=== PATIENT | male | born 1985 | race Caucasian/White ===

== ENCOUNTER 2018-01-06 22:17 | Emergency (ER) | payer SELFPAY ==
[2018-01-06] MEDS ORDERED: MORPHINE SULFATE 4MG/ML PREFILLED SYRINGE IVP ONE (22:26)
[2018-01-06] MEDS ORDERED: ONDANSETRON HCL IV 4 MG/2 ML VIAL IVP ONE (22:26)
--- NOTE | 2018-01-06 22:30 | Emergency Department Record ---
History of Present Illness - General Chief complaint: Lower Extremity Pain Stated complaint: INJURY TO LEFT LEG AND ANKLE Time Seen by Provider: 01/06/18 22:25 Source: Patient Mode of Arrival: Wheelchair Limitations: No limitations - History of Present Illness Initial comments: 32 yo male presents to ED for evaluation of left ankle pain following injury while out at the [employer] (fall). Patient denies other injury, but reports that he was unable to place weight on his left ankle following the injury. Patient denies health problems at his baseline. MD Complaint: Extremity swelling, Joint pain Onset/Timin -: Hour(s) Location: Left History of Same: No -: Yes Arthralgia Quality: Aching Consistency: Constant Improves with: Nothing Worsens with: Walking, Weight bearing Associated Symptoms: Denies other symptoms - Related Data Previous Rx's Medication Instructions Recorded Omeprazole 20 mg PO DAILY #30 capsule. 03/12/15 Hydrocodone/Acetaminophen [[place] 1 each PO Q6H PRN #15 tablet 01/06/18 7.5-325 Tablet] Allergies Allergy/AdvReac Type Severity Reaction Status Date / Time No Known Drug Allergies Allergy Unverified 08/13/15 08:53 Review of Systems Constitutional: Denies: Chills, Fever, Malaise, Night sweats Eyes: Denies: Eye discharge, Eye pain ENT: Denies: Congestion, Ear pain, Epistaxis Respiratory: Denies: Cough, Dyspnea Cardiovascular: Denies: Chest pain, Dyspnea on exertion Endocrine: Denies: Fatigue, Heat or cold intolerance Gastrointestinal: Denies: Abdominal pain, Nausea, Vomiting Genitourinary: Denies: Incontinence, Retention Musculoskeletal: Reports: Arthralgia, Joint swelling. Denies: Back pain, Gout Skin: Denies: Bruising, Change in color Neurological: Denies: Confusion, Headache, Seizure Psychiatric: Denies: Anxiety Hematological/Lymphatic: Denies: Anemia, Blood Clots Past Medical History - SOCIAL HISTORY Smoking Status: Former smoker - RESPIRATORY Hx Respiratory Disorders: No - CARDIOVASCULAR Hx Cardio Disorders: No - NEURO Hx Neuro Disorders: No - GI Hx GI Disorders: No - Hx Genitourinary Disorders: No - ENDOCRINE Hx Endocrine Disorders: No - MUSCULOSKELETAL Hx Musculoskeletal Disorders: Yes Hx Fibromyalgia: Yes - PSYCH Hx Psych Problems: No - HEMATOLOGY/ONCOLOGY Hx Hematology/Oncology Disorders: No Family Medical History Hx Heart Disease: Grandparents Physical Exam - General General Appearance: Alert, Oriented x3, Cooperative, Moderate distress Limitations: No limitations - Head Head exam: Atraumatic, Normocephalic, Normal inspection Head exam detail: negative: Abrasion, Contusion, Bishop's sign, General tenderness, Hematoma, Laceration - Eye Eye exam: Normal appearance. negative: Conjunctival injection, Periorbital swelling, Periorbital tenderness, Scleral icterus - ENT Ear exam: negative: Auricular hematoma, Auricular trauma Nasal Exam: negative: Active bleeding, Discharge, Dried blood, Foreign body Mouth exam: negative: Drooling, Laceration, Muffled voice, Tongue elevation Throat exam: negative: Tonsillar erythema, Tonsillomegaly, R peritonsillar mass , L peritonsillar mass - Neck Neck exam: Normal inspection. negative: Meningismus, Tenderness - Respiratory Respiratory exam: Normal lung sounds bilaterally. negative: Rales, Respiratory distress, Rhonchi, Stridor - Cardiovascular Cardiovascular Exam: Regular rate, Normal rhythm, Normal heart sounds Peripheral Pulses: 3+: Dorsalis Pedis (L) - GI/Abdominal GI/Abdominal exam: Soft. negative: Rebound, Rigid, Tenderness - Rectal Rectal exam: Deferred - exam: Deferred - Extremities Extremities exam: Joint swelling, Tenderness, Other (STS and mild deformity to the distal left lower extremity, strong DPP present on examination, no pain over the foot or proximal lower extremity.). negative: Calf tenderness, Pedal edema - Back Back exam: Denies: CVA tenderness (R), CVA tenderness (L) - Neurological Neurological exam: Alert, Oriented X3 - Psychiatric Psychiatric exam: Normal affect, Normal mood - Skin Skin exam: Normal color. negative: Abrasion Type of lesion: negative: abrasion Course Vital Signs 01/06/18 22:25 Temperature 98.3 F Pulse Rate [ 83 Pulse Ox Probe] Respiratory 20 Rate Blood Pressure 120/79 [Left Arm] Pulse Ox 97 - Reevaluation(s) Reevaluation #1: 01/06/18 22:57 Left ankle: Comminuted distal fibula fracture Patient was updated on his radiology result, will place in posterior/sugar tong splint with instructions to follow-up with Dr. Manzo next week in the [facility]. Patient reports that he is feeling much better following analgesia, and appears stable for discharge with outpatient orthopedic follow- up. Disposition Disposition: Discharge Clinical Impression: Fibula fracture Qualifiers: Encounter type: initial encounter Fibula location: shaft Fracture type: closed Fracture morphology: comminuted Fracture alignment: nondisplaced Laterality: left Qualified Code(s): S82.455A - Nondisplaced comminuted fracture of shaft of left fibula, initial encounter for closed fracture Disposition: Home, Self-Care Condition: (2) Stable Instructions: Ankle Fracture (ED) Additional Instructions: Return to ED if your symptoms worsen or if you have any concerns. [place] as directed for pain. Elevate, ice, and non-weight bearing. Follow-up with Dr. Manzo next week in the [facility]. Prescriptions: Hydrocodone/Acetaminophen [[place] 7.5-325 Tablet] 1 each PO Q6H PRN #15 tablet PRN Reason: Pain - Moderate (5-7) Referrals: DAKOTA MANZO [DOCTOR OF OSTEOPATH] - [facility] [Provider Group] Forms: Patient Portal Access Time of Disposition: 23:05 Quality - Quality Measures Quality Measures: N/A - Blood Pressure Screening Does Patient Have Any of the Following: No Blood Pressure Classification: Pre-Hypertensive BP Reading Systolic Measurement: 120 Diastolic Measurement: 79 Screening for High Blood Pressure: < Pre-Hypertensive BP, F/U Documented > [ G8950] Pre-Hypertensive Follow-up Interventions: Referral to alternative/primary care provider.
--- NOTE | 2018-01-08 12:54 | RADIOLOGY REPORT ---
EXAM: ANKLE LEFT 3 VIEWS HISTORY: INJURY. TECHNIQUE: Three views of the left ankle were performed. FINDINGS: There is a minimally displaced spiral fracture deformity of the distal left fibula. There is soft tissue swelling. IMPRESSION: MINIMALLY DISPLACED SPIRAL FRACTURE DEFORMITY OF THE DISTAL LEFT FIBULA. JOB NUMBER: [id number] MTDD
== END 2018-01-06 23:37 | disposition home or self-care (01) ==
LOC: ER 22:17
DX: S82.455A Nondisplaced comminuted fracture of shaft of left fibula, initial encounter for closed fracture (principal); W17.89XA Other fall from one level to another, initial encounter; Y92.830 Public park as the place of occurrence of the external cause; F17.210 Nicotine dependence, cigarettes, uncomplicated
CPT/HCPCS: 29515; 99284 ×2; 96374; 96375; 73610; J2405; J2274

== ENCOUNTER 2018-03-23 03:00 | Emergency (ER) | payer SELFPAY ==
[2018-03-23] MEDS ORDERED: MORPHINE SULFATE 10 MG/ML VIAL IVP ONE ×2 (03:07→05:05)
[2018-03-23] MEDS ORDERED: 0.9 % SODIUM CHLORIDE 1,000 ML BAG IV ONE (03:07)
[2018-03-23] MEDS ORDERED: AMPICILLIN SODIUM/SULBACTAM NA 3 G in 0.9 % SODIUM CHLORIDE 100ML 100 ML IVPB ONE (03:08)
--- NOTE | 2018-03-23 03:14 | Emergency Department Record ---
History of Present Illness - General Chief complaint: Abscess Stated complaint: RECTAL ABSCESS Time Seen by Provider: 03/23/18 03:01 Source: Patient Mode of Arrival: Ambulatory Limitations: No limitations - History of Present Illness Initial comments: 32 yo male presents with increasing pain in the anal region. He states the pain continues to increase daily. No drainage. He has had several abscesses in the past that recur in the similar area. He states this is the 5 times in the last 2 years. No fever. No scrotal pain or symptoms. No nausea or vomiting. No diarrhea. No PCP. MD complaint: Abscess/boil -: Days(s) (3) Hx Tetanus Toxoid Vaccination: Yes Year of Tetanus Vaccination: 2013 Location: Buttocks Severity: Moderate Quality: Aching Consistency: Constant Improves with: Immobilization Worsens with: Palpation Context: None Associated symptoms: Denies other symptoms Treatments Prior to Arrival: None - Related Data Previous Rx's Medication Instructions Recorded Omeprazole 20 mg PO DAILY #30 capsule. 03/12/15 Hydrocodone/Acetaminophen [[place] 1 each PO Q6H PRN #15 tablet 01/06/18 7.5-325 Tablet] Amoxicillin/Potassium Clav 1 tab PO BID #14 tab 03/23/18 [Augmentin 875-125 Tablet] Hydrocodone/APAP 5/325Mg [[place] 1 each PO Q6H #12 tab 03/23/18 5Mg/325Mg] Allergies Allergy/AdvReac Type Severity Reaction Status Date / Time No Known Drug Allergies Allergy Unverified 08/13/15 08:53 Review of Systems Constitutional: Denies: Chills, Fever, Weakness Eyes: Denies: Eye discharge ENT: Denies: Congestion, Throat pain Respiratory: Denies: Cough, Dyspnea Cardiovascular: Denies: Chest pain, Syncope Endocrine: Denies: Fatigue Gastrointestinal: Reports: Other (rectal pain). Denies: Abdominal pain, Diarrhea, Nausea, Vomiting Genitourinary: Denies: Dysuria, Frequency, Hematuria, Retention, Testicular pain Musculoskeletal: Denies: Arthralgia, Back pain, Neck pain Skin: Denies: Bruising, Change in color, Rash Neurological: Denies: Confusion, Headache, Numbness, Weakness Psychiatric: Denies: Anxiety Hematological/Lymphatic: Denies: Blood Clots, Easy bleeding, Easy bruising, Swollen glands Past Medical History - SOCIAL HISTORY Smoking Status: Former smoker - RESPIRATORY Hx Respiratory Disorders: No - CARDIOVASCULAR Hx Cardio Disorders: No - NEURO Hx Neuro Disorders: No - GI Hx GI Disorders: No - Hx Genitourinary Disorders: No - ENDOCRINE Hx Endocrine Disorders: No - MUSCULOSKELETAL Hx Musculoskeletal Disorders: Yes Hx Fibromyalgia: Yes - PSYCH Hx Psych Problems: No - HEMATOLOGY/ONCOLOGY Hx Hematology/Oncology Disorders: No Family Medical History Hx Heart Disease: Grandparents Physical Exam - General General Appearance: Alert, Oriented x3, Cooperative, No acute distress Limitations: No limitations - Head Head exam: Atraumatic, Normal inspection - Eye Eye exam: Normal appearance. negative: Conjunctival injection - ENT ENT exam: Normal exam Ear exam: Normal external inspection Nasal Exam: Normal inspection Mouth exam: Normal external inspection - Neck Neck exam: Normal inspection - Cardiovascular Cardiovascular Exam: Regular rate, Normal rhythm, Normal heart sounds - GI/Abdominal GI/Abdominal exam: Tenderness - Rectal Rectal exam: Normal rectal tone, Tenderness (tender left of the anus, no bulging , no pus or drainage, no asymmetry). negative: Normal inspection - Extremities Extremities exam: Normal inspection - Neurological Neurological exam: Alert, Oriented X3 - Psychiatric Psychiatric exam: negative: Agitated, Anxious - Skin Skin exam: Dry, Intact, Normal color, Warm Course - Reevaluation(s) Reevaluation #1: The area on the examination is not to a head at this time. CT ordered to further evaluate. 03/23/18 03:13 03/23/18 03:26 The CBC was reviewed. WBC is 13 03/23/18 03:38 The BMP was normal. 03/23/18 04:[address] was reviewed. There is a 3.5 x 2.1 x 2.1 abscess in the perianal region. 03/23/18 06:00 I discussed the case with Dr Leigh. He recommends I and D with packing and refer to the specialty clinic. The patient is to perform sitz baths and will be placed on antibiotics Procedure: Incision and Drainage of Abscess Betadine Prep Lidocaine with Epinephrine ml 18 gauge needle was used to find the abscess About 15ml of purulence immediately aspirated 11 Blade used to make an 10 mm opening well away from the sphincter area of the anus The patient felt immediate relief of pressure and pain The area was gently probed for loculations and additional pus expressed until clear of pus and only blood The cavity was irrigated and loculations broken up Packing was placed in the cavity with iodoform The patient tolerated the procedure well We discussed home care and when to return for a recheck He was referred to Dr Leigh's Surgery clinic We discussed at length home care, reasons to return if the pain and swelling return or any other concerns 03/23/18 06:54 03/23/18 06:55 Medical Decision Making - Lab Data Result diagrams: 03/23/18 03:12 03/23/18 03:12 Disposition Disposition: Discharge Clinical Impression: Perianal abscess Disposition: Home, Self-Care Condition: (1) Good Instructions: Abscess Incision and Drainage (ED), Anorectal Abscess and Anal Fistula (ED) Additional Instructions: Sitz Baths 2-3 times daily Return to the ER if the pain returns, fever, or any concerns Follow up with Dr Leigh Tuesday in the Surgery [facility] Take the Antibiotic as directed Use over the counter stool softener for prevent hard stools or constipation Prescriptions: Amoxicillin/Potassium Clav [Augmentin 875-125 Tablet] 1 tab PO BID #14 tab Hydrocodone/APAP 5/325Mg [[place] 5Mg/325Mg] 1 each PO Q6H #12 tab Referrals: [facility] [Provider Group] Jonathon Leigh [DOCTOR OF OSTEOPATH] - Forms: Patient Portal Access Time of Disposition: 06:50 Quality - Quality Measures Quality Measures: N/A - Blood Pressure Screening Does Patient Have Any of the Following: No Blood Pressure Classification: Hypertensive Reading Systolic Measurement: 138 Diastolic Measurement: 94 Screening for High Blood Pressure: < Pre-Hypertensive BP, F/U Documented > [ G8950] Pre-Hypertensive Follow-up Interventions: Referral to alternative/primary care provider.
[2018-03-23 03:24] LABS: BASO % 0.2 % (0-6); EOS % 1.1 % (0-6); GRAN % 73.4 % (47-80); HEMATOCRIT 42.1 % (42.0-52.0); HEMOGLOBIN 13.7 gm/dl (14.0-18.0); LYMPH % 13.3 % (16-45); MEAN CELL VOLUME 84.7 fl (81-97); MEAN CORPUSCULAR HGB CONC 32.5 g/dl (32-36); MEAN PLATELET VOLUME 9.6 fl (7.4-10.4); PLATELET COUNT 312 K/uL (130-400); RED BLOOD COUNT 4.97 M/uL (4.40-5.70); RED CELL DISTRIBUTION WIDTH 12.6 % (11.5-14.5); WHITE BLOOD COUNT W/O DIFF 13.1 K/uL (4.2-12.2)
[2018-03-23 03:25] LABS: MEAN CORPUSCULAR HEMOGLOBIN 27.5 pg (27-33)
[2018-03-23 03:36] LABS: BLOOD UREA NITROGEN 12 mg/dL (6-20); CREATININE 0.8 mg/dL (0.7-1.2); EST GLOMERULAR FILTRATION RATE > 60 mL/min
[2018-03-23 03:39] LABS: GLUCOSE,RANDOM 110 mg/dL (74-109)
--- NOTE | 2018-03-23 15:18 | CT SCAN REPORT ---
EXAM: CT OF THE PELVIS WITH CONTRAST HISTORY: RECTAL ABSCESS. TECHNIQUE: Sequential axial images were obtained through the pelvis after intravenous administration of 100 ml of Omnipaque 300 contrast material. FINDINGS: The visceral structures appear unremarkable. No pelvic masses appreciated. The appendix is visualized and appears normal. There is a 3.5 cm x 2.1 cm x 2.1 cm abscess in the right perianal region. The osseous structures are normal. IMPRESSION: 3.5 CM X 2.1 CM X 2.1 CM ABSCESS IN THE RIGHT PERIANAL REGION. THE REMAINDER OF THE EXAMINATION IS UNREMARKABLE. JOB NUMBER: [id number] MTDD
== END 2018-03-23 07:06 | disposition home or self-care (01) ==
LOC: ER 03:00
DX: K61.0 Anal abscess (principal); Z87.891 Personal history of nicotine dependence
CPT/HCPCS: 46050; 72193; 80048; 85025; 96365; 96375; 96376; 99284; J0295; J2270; J7030

== ENCOUNTER 2018-05-29 06:52 | Emergency (ER) | payer SELFPAY ==
[2018-05-29] MEDS ORDERED: ONDANSETRON HCL IV 4 MG/2 ML VIAL IV ONE (07:13)
[2018-05-29] MEDS ORDERED: 0.9 % SODIUM CHLORIDE 1,000 ML BAG IV ONE (07:13)
--- NOTE | 2018-05-29 07:19 | Emergency Department Record ---
History of Present Illness - General Chief Complaint: Abdominal Pain Stated Complaint: ABDOMINAL PAIN Time Seen by Provider: 05/29/18 07:01 Source: Patient Mode of Arrival: Ambulatory Limitations: No limitations - History of Present Illness Initial Comments: 32 yo male presents with abdominal pain, vomiting and diarrhea. The onset was 6 days ago. He is having lower abdominal pain, cramps, and non bloody diarrhea. No fever. No blood in the vomiting. He reports he had blood in his stool about a year ago. He had a colonoscopy at an outside hospital that demonstrated polyps and hemorrhoids. No current antibiotics. No cough. No dysuria. No PCP. MD Complaint: Abdominal pain Onset/Timin -: Week(s) Location: Suprapubic Radiation: Suprapubic Migration to: No migration Severity: Moderate Severity scale (1-10): 6 Quality: Cramping, Sharp Improves With: Nothing Worsens With: Nothing Associated Symptoms: Diarrhea, Vomiting - Related Data Previous Rx's Medication Instructions Recorded Omeprazole 20 mg PO DAILY #30 capsule. 03/12/15 Dicyclomine HCl [Bentyl] 10 mg PO Q8H #15 cap 05/29/18 Ondansetron [Zofran Odt] 4 mg PO Q8H #15 tab.rapdis 05/29/18 Allergies Allergy/AdvReac Type Severity Reaction Status Date / Time No Known Drug Allergies Allergy Unverified 08/13/15 08:53 Travel Screening - Travel/Exposure Within Last 30 Days Have you traveled within the last 30 days?: No - Travel/Exposure Within Last Year Have you traveled outside the [place] in the last year?: No - Additonal Travel Details Have you been exposed to anyone with a communicable illness?: No Review of Systems Constitutional: Denies: Chills, Fever, Malaise, Weakness Eyes: Denies: Eye discharge ENT: Denies: Congestion, Throat pain Respiratory: Denies: Cough Cardiovascular: Denies: Chest pain, Syncope Endocrine: Denies: Fatigue Gastrointestinal: Reports: Abdominal pain, Diarrhea, Nausea, Vomiting. Denies: Constipation, Hematemesis, Hematochezia, Melena Genitourinary: Denies: Dysuria, Frequency, Hematuria Musculoskeletal: Denies: Arthralgia, Back pain, Myalgia Skin: Denies: Bruising, Change in color, Rash Neurological: Denies: Confusion Psychiatric: Denies: Anxiety Hematological/Lymphatic: Denies: Blood Clots, Easy bleeding, Easy bruising Past Medical History - SOCIAL HISTORY Smoking Status: Current every day smoker Alcohol Use: Occasional Drug Use: None - RESPIRATORY Hx Respiratory Disorders: No - CARDIOVASCULAR Hx Cardio Disorders: Yes Hx Hypertension: Yes - NEURO Hx Neuro Disorders: No - GI Hx GI Disorders: Yes Hx Reflux: Yes - Hx Genitourinary Disorders: No - ENDOCRINE Hx Endocrine Disorders: No - MUSCULOSKELETAL Hx Musculoskeletal Disorders: Yes Hx Fibromyalgia: Yes - PSYCH Hx Psych Problems: No - HEMATOLOGY/ONCOLOGY Hx Hematology/Oncology Disorders: No Family Medical History Any Significant Family History?: No Hx Heart Disease: Grandparents Physical Exam - General General Appearance: Alert, Oriented x3, Cooperative, No acute distress Limitations: No limitations - Head Head exam: Atraumatic - Eye Eye exam: Normal appearance. negative: Conjunctival injection, Scleral icterus - ENT ENT exam: Normal exam Ear exam: Normal external inspection Nasal Exam: Normal inspection Mouth exam: Normal external inspection - Neck Neck exam: Normal inspection - Respiratory Respiratory exam: Normal lung sounds bilaterally. negative: Respiratory distress - Cardiovascular Cardiovascular Exam: Regular rate, Normal rhythm, Normal heart sounds - GI/Abdominal GI/Abdominal exam: Soft, Tenderness (tender suprapubic otherwise very soft abdomen). negative: Distended, Guarding, Rebound, Rigid - Rectal Rectal exam: Deferred - exam: Deferred - Extremities Extremities exam: Normal inspection, Full ROM, Normal capillary refill. negative: Tenderness - Back Back exam: Reports: Normal inspection, Full ROM. Denies: Muscle spasm, Rash noted, Tenderness - Neurological Neurological exam: Alert, Normal gait, Oriented X3 - Psychiatric Psychiatric exam: Normal affect, Normal mood. negative: Agitated, Anxious - Skin Skin exam: Dry, Intact, Normal color, Warm Course Vital Signs 05/29/18 06:58 Temperature 98.1 F Pulse Rate [ 55 L Pulse Ox Probe] Respiratory 20 Rate Blood Pressure 147/100 [Left Arm] Pulse Ox 100 - Reevaluation(s) Reevaluation #1: The labs results were reviewed There are no acute abnormalities of the CBC There are no acute abnormalities of the CMP The UA was reviewed and is normal 05/29/18 07:52 05/29/18 09:[address] scan was negative for acute process 3 cm right Renal Cyst Resolved perianal abscess Medical Decision Making - Lab Data Result diagrams: 05/29/18 07:15 05/29/18 07:15 Disposition Disposition: Discharge Clinical Impression: Vomiting and diarrhea Disposition: Home, Self-Care Condition: (1) Good Instructions: Acute Nausea and Vomiting (ED), Acute Diarrhea (ED) Additional Instructions: Take the prescriptions provided today as directed. Call your family doctor. Call to schedule the next available appointment for a recheck. Return to ED if your symptoms worsen or if you have any new concerns. Review the final Emergency Record and test results with your doctor on follow up If the diarrhea continues return for a culture of the stools Prescriptions: Dicyclomine HCl [Bentyl] 10 mg PO Q8H #15 cap Ondansetron [Zofran Odt] 4 mg PO Q8H #15 tab.rapdis Forms: Patient Portal Access Time of Disposition: 09:46 Quality - Quality Measures Quality Measures: N/A - Blood Pressure Screening Does Patient Have Any of the Following: No Blood Pressure Classification: Hypertensive Reading Systolic Measurement: 137 Diastolic Measurement: 92 Screening for High Blood Pressure: < Pre-Hypertensive BP, F/U Documented > [ G8950] Pre-Hypertensive Follow-up Interventions: Referral to alternative/primary care provider.
[2018-05-29] MEDS ORDERED: MORPHINE SULFATE 10 MG/ML VIAL IVP ONE (07:21)
[2018-05-29 07:24] LABS: BASO % 0.5 % (0-6); EOS % 4.2 % (0-6); HEMATOCRIT 43.8 % (42.0-52.0); HEMOGLOBIN 13.9 gm/dl (14.0-18.0); LYMPH % 28.8 % (16-45); MEAN CELL VOLUME 85.2 fl (81-97); MEAN CORPUSCULAR HGB CONC 31.7 g/dl (32-36); MEAN PLATELET VOLUME 10.1 fl (7.4-10.4); MONO % 9.5 % (0-9); PLATELET COUNT 250 K/uL (130-400); RED BLOOD COUNT 5.14 M/uL (4.40-5.70); RED CELL DISTRIBUTION WIDTH 13.2 % (11.5-14.5); WHITE BLOOD COUNT W/O DIFF 6.2 K/uL (4.2-12.2)
[2018-05-29 07:37] LABS: BLOOD UREA NITROGEN 11 mg/dL (6-20); CREATININE 0.8 mg/dL (0.7-1.2); EST GLOMERULAR FILTRATION RATE > 60 mL/min; TOTAL PROTEIN 7.1 g/dL (6.6-8.7)
[2018-05-29 07:40] LABS: GLUCOSE,RANDOM 99 mg/dL (74-109)
[2018-05-29 07:42] LABS: URINE APPEARANCE CLEAR; URINE BILIRUBIN NEGATIVE (NEGATIVE); URINE BLOOD NEGATIVE (NEGATIVE); URINE COLOR YELLOW; URINE GLUCOSE (UA) NEGATIVE (NEGATIVE); URINE KETONE NEGATIVE (NEGATIVE); URINE LEUKOCYTE ESTERASE NEGATIVE (NEGATIVE); URINE NITRITE NEGATIVE (NEGATIVE); URINE PROTEIN NEGATIVE (NEGATIVE); URINE UROBILINOGEN 0.2 E.U./dL (0.20 - 1.00)
[2018-05-29 07:42] LABS: ALBUMIN 4.8 g/dL (4.0-5.0); ALKALINE PHOSPHATASE 81 U/L (40-129); ALT/SGPT 30 U/L (<41); AST/SGOT 25 U/L (10.0-50.0)
[2018-05-29 07:43] LABS: BILIRUBIN,DIRECT < 0.2 mg/dL (0-0.3); LIPASE 37 U/L (13-60)
--- NOTE | 2018-06-01 14:24 | CT SCAN REPORT ---
EXAM: CT OF THE ABDOMEN AND PELVIS WITH CONTRAST HISTORY: PELVIC PAIN WITH DIARRHEA. TWO EPISODES OF VOMITING. TECHNIQUE: Following oral and intravenous contrast administration, helical CT examination of the abdomen and pelvis was performed including delayed images through the kidneys with 100 ml of Omnipaque 300 utilized. Comparison: CT of the pelvis with contrast dated 03/23/18. FINDINGS: There is mild dependent atelectasis in each lung base. A calcified granuloma is present in the posteromedial right lung base, stable since . No pleural or pericardial effusion. The heart is not enlarged. The liver, spleen, pancreas, adrenal glands and right kidney are normal in appearance. A well circumscribed fluid density mass is demonstrated within the posterior mid left kidney measuring 3.3 x 3.4 cm. This is consistent with a benign cyst. The left kidney is otherwise normal in appearance. There is no evidence of obstructive uropathy. The gallbladder is unremarkable and no biliary ductal dilatation is seen. No intraabdominal nor retroperitoneal lymphadenopathy. The vasculature is normal in appearance. No pelvic mass, lymphadenopathy, or free pelvic fluid. No intrinsic urinary bladder abnormality. No gross bowel dilatation nor bowel wall thickening. The appendix is visualized and normal in appearance. The level of the previous demonstrated perianal abscess is not included on this examination. No new lytic or blastic bone lesion. A tiny fat filled umbilical hernia is redemonstrated. IMPRESSION: 1. NO CT EVIDENCE OF AN ACUTE INTRAABDOMINAL NOR INTRAPELVIC PROCESS. 2. LEFT RENAL CYST. 3. CALCIFIED GRANULOMA WITHIN THE POSTERIOR RIGHT LUNG BASE. JOB NUMBER: [id number] MTDD
== END 2018-05-29 09:55 | disposition home or self-care (01) ==
LOC: ER 06:52
DX: R11.11 Vomiting without nausea (principal); R19.7 Diarrhea, unspecified; I10 Essential (primary) hypertension; F17.210 Nicotine dependence, cigarettes, uncomplicated
CPT/HCPCS: 99284 ×2; 96374; 96375; 96361; 83690; 85025; 80076; 80048; 81003; 74177; Q9967; J2405; J2270; J7030

== ENCOUNTER 2018-08-05 02:41 | Emergency (ER) | payer SELFPAY ==
[2018-08-05] MEDS ORDERED: CLINDAMYCIN 150 MG CAP PO ONE (03:00)
[2018-08-05] MEDS ORDERED: KETOROLAC 30 MG/ML VIAL IM ONE (03:00)
--- NOTE | 2018-08-05 03:08 | Emergency Department Record ---
History of Present Illness - General Chief complaint: Abscess Stated complaint: ABSCESS Time Seen by Provider: 08/05/18 02:53 Source: Patient Mode of Arrival: Ambulatory Limitations: No limitations - History of Present Illness Initial comments: The patient is here due to rectal pain for 10 hours. He has had recurrent rectal abscesses with the last one 4 months ago. The patient has been to the ER multiple times for this but has never followed up with a general surgeon as instructed. Now the pain has returned about 10 hours ago. He denies any fever, chills, AP, dysuria, or vomiting. MD complaint: Abscess/boil Onset/Timin -: Hour(s) Hx Tetanus Toxoid Vaccination: Yes Year of Tetanus Vaccination: 2013 Location: Buttocks Severity scale (1-10): 6 Associated symptoms: Denies other symptoms Treatments Prior to Arrival: None - Related Data Home Medications Medication Instructions Recorded Confirmed Last Taken Escitalopram Oxalate [Lexapro] 10 mg PO DAILY 08/05/18 08/05/18 Unknown Previous Rx's Medication Instructions Recorded Dicyclomine HCl [Bentyl] 10 mg PO Q8H #15 cap 05/29/18 Clindamycin HCl [Cleocin HCl] 300 mg PO QID #28 capsule 08/05/18 Allergies Allergy/AdvReac Type Severity Reaction Status Date / Time No Known Drug Allergies Allergy Verified 08/05/18 02:44 Travel Screening - Travel/Exposure Within Last 30 Days Have you traveled within the last 30 days?: No - Travel Symptoms Symptom Screening: None Review of Systems Constitutional: Denies: Chills, Fever Eyes: Denies: Eye discharge ENT: Denies: Congestion Respiratory: Denies: Cough, Dyspnea Past Medical History - SOCIAL HISTORY Smoking Status: Former smoker - RESPIRATORY Hx Respiratory Disorders: No - CARDIOVASCULAR Hx Cardio Disorders: Yes Hx Hypertension: Yes - NEURO Hx Neuro Disorders: No - GI Hx GI Disorders: Yes Hx Reflux: Yes - Hx Genitourinary Disorders: No - ENDOCRINE Hx Endocrine Disorders: No - MUSCULOSKELETAL Hx Musculoskeletal Disorders: Yes Hx Fibromyalgia: Yes - PSYCH Hx Psych Problems: Yes Hx Anxiety: Yes - HEMATOLOGY/ONCOLOGY Hx Hematology/Oncology Disorders: No Family Medical History Any Significant Family History?: Yes Hx Heart Disease: Grandparents Physical Exam - General General Appearance: Alert, Cooperative, No acute distress - Head Head exam: Atraumatic, Normal inspection - Eye Eye exam: Normal appearance - Respiratory Respiratory exam: Normal lung sounds bilaterally. negative: Respiratory distress - Cardiovascular Cardiovascular Exam: Regular rate, Normal rhythm, Normal heart sounds - GI/Abdominal GI/Abdominal exam: Soft, Normal bowel sounds. negative: Rebound, Rigid, Tenderness - Rectal Rectal exam: Tenderness (There is tenderness to palpation over the 7:00 position over his anal area. There is clearly no fluctuance or significant abscess appreciated. There is no significant fullness to drain at this time.). negative: Normal inspection Course Vital Signs 08/05/18 02:45 Temperature 98.2 F Pulse Rate 88 Respiratory 20 Rate Blood Pressure 157/95 Pulse Ox 100 - Reevaluation(s) Reevaluation #1: I explained to the patient that it appears that the infected area is quite premature at this time and is not amendable to drainage. He is to take the oral Abx's and is to use warm sitz baths as much as possible and to return to the ER in 1-2 days for recheck. 08/05/18 03:06 Disposition Disposition: Discharge Clinical Impression: Anal or rectal pain Disposition: Home, Self-Care Condition: (2) Stable Instructions: Abscess (ED) Additional Instructions: Please take the Clindamycin as directed and use the warm soaks as much as possible. Please return to the ER in 1-2 days for recheck and possible I and D. Prescriptions: Clindamycin HCl [Cleocin HCl] 300 mg PO QID #28 capsule Forms: Patient Portal Access Time of Disposition: 03:09 Quality - Quality Measures Quality Measures: N/A - Blood Pressure Screening View Details: Yes Does Patient Have Any of the Following: No Blood Pressure Classification: Hypertensive Reading Systolic Measurement: 157 Diastolic Measurement: 95 Screening for High Blood Pressure: < First Hypertensive BP, F/U Documented > [ G8950] First Hypertensive Follow-up Interventions: Referral to alternative/primary care provider.
--- NOTE | 2018-08-05 03:28 | Emergency Department Record ---
History of Present Illness - General Chief complaint: Abscess Stated complaint: ABSCESS Time Seen by Provider: 08/05/18 02:53 Source: Patient Mode of Arrival: Ambulatory Limitations: No limitations - History of Present Illness MD complaint: Abscess/boil Onset/Timin -: Hour(s) Hx Tetanus Toxoid Vaccination: Yes Year of Tetanus Vaccination: 2013 Location: Buttocks Severity scale (1-10): 6 Associated symptoms: Denies other symptoms Treatments Prior to Arrival: None - Related Data Home Medications Medication Instructions Recorded Confirmed Last Taken Escitalopram Oxalate [Lexapro] 10 mg PO DAILY 08/05/18 08/05/18 Unknown Previous Rx's Medication Instructions Recorded Dicyclomine HCl [Bentyl] 10 mg PO Q8H #15 cap 05/29/18 Clindamycin HCl [Cleocin HCl] 300 mg PO QID #28 capsule 08/05/18 Allergies Allergy/AdvReac Type Severity Reaction Status Date / Time No Known Drug Allergies Allergy Verified 08/05/18 02:44 Travel Screening - Travel/Exposure Within Last 30 Days Have you traveled within the last 30 days?: No - Travel Symptoms Symptom Screening: None Review of Systems Constitutional: Denies: Chills, Fever Eyes: Denies: Eye discharge ENT: Denies: Congestion Respiratory: Denies: Cough, Dyspnea Past Medical History - SOCIAL HISTORY Smoking Status: Former smoker - RESPIRATORY Hx Respiratory Disorders: No - CARDIOVASCULAR Hx Cardio Disorders: Yes Hx Hypertension: Yes - NEURO Hx Neuro Disorders: No - GI Hx GI Disorders: Yes Hx Reflux: Yes - Hx Genitourinary Disorders: No - ENDOCRINE Hx Endocrine Disorders: No - MUSCULOSKELETAL Hx Musculoskeletal Disorders: Yes Hx Fibromyalgia: Yes - PSYCH Hx Psych Problems: Yes Hx Anxiety: Yes - HEMATOLOGY/ONCOLOGY Hx Hematology/Oncology Disorders: No Family Medical History Any Significant Family History?: Yes Hx Heart Disease: Grandparents Physical Exam - General Limitations: No limitations Course Vital Signs 08/05/18 02:45 Temperature 98.2 F Pulse Rate 88 Respiratory 20 Rate Blood Pressure 157/95 Pulse Ox 100 Disposition Clinical Impression: Anal or rectal pain Disposition: Home, Self-Care Condition: (2) Stable Instructions: Abscess (ED) Additional Instructions: Please take the Clindamycin as directed and use the warm soaks as much as possible. Please return to the ER in 1-2 days for recheck and possible I and D. Prescriptions: Clindamycin HCl [Cleocin HCl] 300 mg PO QID #28 capsule Referrals: [facility] Specialty Clinics [Provider Group] Forms: Patient Portal Access Quality - Quality Measures Quality Measures: N/A - Blood Pressure Screening View Details: Yes Does Patient Have Any of the Following: No Blood Pressure Classification: Hypertensive Reading Systolic Measurement: 157 Diastolic Measurement: 95 Screening for High Blood Pressure: < First Hypertensive BP, F/U Documented > [ G8950] First Hypertensive Follow-up Interventions: Referral to alternative/primary care provider.
== END 2018-08-05 03:40 | disposition home or self-care (01) ==
LOC: ER 02:41
DX: K62.89 Other specified diseases of anus and rectum (principal); I10 Essential (primary) hypertension; F17.210 Nicotine dependence, cigarettes, uncomplicated
CPT/HCPCS: 99283 ×2; 96372; J1885